=== PATIENT | male | born 1980 | race African-American/Black ===

== ENCOUNTER 2016-10-18 21:19 | Emergency (ER) | payer SELFPAY ==
[2016-10-18 21:25] VITALS: BP 131/78
[2016-10-18] MEDS ORDERED: CYCL10TA2 PO (21:50)
--- NOTE | 2016-10-18 21:50 | PHYS DOC ---
Past Medical History Past Medical History: No Pertinent History Past Surgical History: No Surgical History Alcohol Use: Occasionally Drug Use: Marijuana Adult General Chief Complaint Chief Complaint: LOWER BACK PAIN OR INJURY [facility] HPI Patient is a 36 year old male presents to the emergency Department stating he' s been having lower back pain on bilateral sides since Monday. He states that he started a new job when he was in orientation all week last week when he was sitting. He states that he felt as though there is some pulling in the lower back area denies any injury or trauma. Denies any loss of bowel or bladder. He does state when the pain increases he has some numbness and tingling down the legs. Patient states that he went to work today and felt somewhat pulling and discomfort when lifting. He has been using [id number] medications and pain relievers to help with the discomfort. Patient states that this is helped minimally. Patient's does state he has had a history of back problems in the past. Review of Systems Review of Systems Constitutional: Denies fever or chills [] Eyes: Denies change in visual acuity, redness, or eye pain [] HENT: Denies nasal congestion or sore throat [] Respiratory: Denies cough or shortness of breath [] Cardiovascular: No additional information not addressed in HPI [] GI: Denies abdominal pain, nausea, vomiting, bloody stools or diarrhea [] : Denies dysuria or hematuria [] Musculoskeletal: bilateral lower back pain denies joint pain [] Integument: Denies rash or skin lesions [] Neurologic: Denies headache, focal weakness or sensory changes [] Endocrine: Denies polyuria or polydipsia [] Current Medications Current Medications Current Medications Medications (Trade) Dose Ordered Sig/Mac Start Time Stop Time Status Last Admin Dose Admin Cyclobenzaprine HCl (Flexeril) 10 mg 1X ONCE 10/18/16 23:00 10/18/16 23:01 10/18/16 22:30 10 MG Ibuprofen (Motrin) 800 mg 1X ONCE 10/18/16 23:00 10/18/16 23:01 10/18/16 22:30 800 MG Allergies Allergies Allergies Coded Allergies Type Severity Reaction Last Updated Verified No Known Drug Allergies 10/18/16 No Physical Exam Physical Exam Constitutional: Well developed, well nourished, no acute distress, non-toxic appearance. [] HENT: Normocephalic, atraumatic, bilateral external ears normal, oropharynx moist, no oral exudates, nose normal. [] Eyes: PERRLA, EOMI, conjunctiva normal, no discharge. [] Neck: Normal range of motion, no tenderness, supple, no stridor. [] Cardiovascular:Heart rate regular rhythm Lungs & Thorax: no respiratory distress noted] Skin: Warm, dry, no erythema, no rash. [] Back: No thoracic, lumbar spine tenderness, no crepitus no deformities no step- offs noted. Patient did have tenderness on bilateral lower back areas. Peripheral pulses 2+ cap refill brisk less than 2 seconds. Patient was able to lift his legs off of the chair that he was sitting in however he did experience increased discomfort. Extremities: No tenderness, no cyanosis, no clubbing, ROM intact, no edema. [] Neurologic: Alert and oriented X 3, normal motor function, normal sensory function, no focal deficits noted. [] Psychologic: Affect normal, judgement normal, mood normal. [] Current Patient Data Vital Signs Vital Signs Date Time Temp Pulse Resp B/P (MAP) Pulse Ox O2 Delivery O2 Flow Rate FiO2 10/18/16 21:25 98.3 84 18 99 Room Air 98.3 EKG EKG [] Radiology/Procedures Radiology/Procedures [] Course & Med Decision Making Course & Med Decision Making Pertinent Labs and Imaging studies reviewed. (See chart for details) Patient was prepared for discharge when family member came to the desk and stated she is requesting an x-ray of his back. Explained to the patient's family member that x-rays are not necessary when there is been no injury. Patient states that she feels there is something more going on than just a back strain. Patient is insistent x-ray be completed here in the emergency department tonight. Explained to patient that x-rays will only identify bones and will not identify muscles. Patient is insistent an x-ray be completed. X- rays completed and read by Dr. Manzo no bony abnormalities noted. Patient was recommended ibuprofen 800 mg every 8 hours with food stop taking few develop an upset stomach. He'll be provided with a prescription for Flexeril. He was instructed this medication will cause drowsiness do not take any be alert and oriented. Patient will be provided with a work note for the next 2 days. He was also instructed to follow-up the primary care physician in the next 7-10 days. Signs and symptoms to return back to emergency department has been provided. Patient agrees with discharge instructions treatment regimens and follow-up recommendations. Dragon Disclaimer Dragon Disclaimer This electronic medical record was generated, in whole or in part, using a voice recognition dictation system. Departure Departure Impression: Primary Impression: Lower back pain Disposition: HOME, SELF-CARE Condition: STABLE Referrals: NO PCP (PCP) Patient Instructions: Back Pain, Adult, [id number] Additional Instructions: Activity as tolerated. Ibuprofen 800 mg every 8 hours with food stop taking few develop an upset stomach. Flexeril as a muscle relaxer this medication will cause drowsiness don't take any be alert and oriented. Ice packs on 20 minutes off 20 minutes several times a day. Follow-up to primary care physician in the next 7-10 days. Return back to emergency prior signs and symptoms that become worse. Scripts Cyclobenzaprine Hcl (CYCLOBENZAPRINE HCL) 10 Mg Tablet 10 MG PO TID, #30 TAB Prov: ALEXIS MONROY APRN 10/18/16 ALEXIS MONROY APRN Oct 18, 2016 21:50
[2016-10-18] MEDS ORDERED: IBUPROFEN 800 MG TABLET. PO ONE (23:00)
[2016-10-18] MEDS ORDERED: CYCLOBENZAPRINE 10 MG TABLET. PO ONE (23:00)
--- NOTE | 2016-10-19 07:31 | RAD ---
Lumbar spine, 3 views, 10/18/2016: History: Low back pain There is a transitional-type vertebra at the lumbosacral junction which is probably a partially lumbarized S1 segment. No fracture or dislocation is identified. The intervertebral disc spaces are well-maintained. There is only minimal marginal spurring in the lower lumbar spine. The paraspinous soft tissues are unremarkable. IMPRESSION: 1. 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 2. No acute abnormality is detected.
== END 2016-10-18 23:03 | disposition home or self-care (01) ==
LOC: ER 21:19
DX: M54.5 Low back pain (principal); R20.0 Anesthesia of skin
CPT/HCPCS: 72100; 99284